=== PATIENT | female | born 1995 | race Two or more races ===

== ENCOUNTER 2024-10-30 07:27 | Inpatient (IN) | payer OTHER ==
[~2024-10-30] VITALS: Ht 177.8 cm; Wt 99.8 kg
[2024-10-30 08:29] VITALS: O2SAT 99
[2024-10-30] MEDS ORDERED: ZOFRAN8 MG (08:31)
--- NOTE | 2024-10-30 08:31 | NUR ---
PRE EMBARAZADA DE 9 SEMANASDE GESTACION CON VOMITOS MAS DE 10. PTE REFIEFE QUE [place] BOMBA DE ZOFRAN LA CUAL NO AYUDA. SE LE KESHIA S/V Y SE UBICA EN NEISHA.
[2024-10-30] MEDS ORDERED: ONDANSETRON HCL 2 MG/ML VIAL IV STA (08:52)
[2024-10-30] MEDS ORDERED: 0.9 % SODIUM CHLORIDE 1,000 ML IV STA (08:52)
--- NOTE | 2024-10-30 09:17 | NUR ---
SE EDUCA SOBRE [place] MEDICO, ESTA REFIERE ENTENDER. SE EXTRAEN MUESTRAS DE LABORATORIO Y SE ADMINISTRAN MEDICAMENTOS DAPHNE ORDEN MEDICA. SE HACE ENTREGA DE ENVASE DE U/A.
[2024-10-30 09:37] LABS: BASO % 0.3 % (0.1-1.2); EOS # 0.04 (0.04-0.54); EOS % 0.4 % (0.7-7.0); LYMPH # 2.30 (1.18-3.74); LYMPH % 20.7 % (19.3-53.1); MEAN PLATELET VOLUME 10.30 fl (9.4-12.4); MONO # 0.52 (0.24-0.82); MONO % 4.7 % (4.7-12.5); NEUT # 8.16 (1.56-6.13); NEUT % 73.5 % (34.0-71.1); RED CELL DISTRIBUTION WIDTH 17.0 % (11.6-14.4)
[2024-10-30 10:37] LABS: BUN CREA RATIO 11.0 (7.0-25.0); CREATININE SERUM 0.84 mg/dL (0.55-1.02); GFR 79.08; GLUCOSE FASTING 120.0 mg/dL (65-100); OSMOLALITY SERUM 268.0 MOSM/KG (275-295)
[2024-10-30 10:43] LABS: HCG QUANTITATIVE 88979.0 mUI/mL (1-3)
[2024-10-30 11:31] LABS: URINE APPEARANCE Clear; URINE BILIRRUBIN Small (NEGATIVE); URINE BLOOD Negative; URINE COLOR Dark Yellow; URINE GLUCOSE Negative (NEGATIVE); URINE LEUKOCYTE Trace; URINE NITRATE Negative; URINE PROTEIN 30 (NEGATIVE); URINE UROBILINOGEN 1.0 E.U./dl
[2024-10-30 11:36] LABS: URINE BACTERIA 1462.7 uL (0.0-1933); URINE CAST 3.37 uL (0.0-1.40); URINE EPITHELIAL CELLS 67.5 uL (0.0-38.8); URINE RBC 21.1 uL (0.0-20.8); URINE WBC 12.9 uL (0.0-23.2)
[2024-10-30] MEDS ORDERED: KETOROLAC TROMETHAMINE 30 MG VIAL ONE (11:42)
[2024-10-30] MEDS ORDERED: KETOROLAC TROMETHAMINE 30 MG VIAL IV ONE (11:45)
[2024-10-30] MEDS ORDERED: METOCLOPRAMIDE HCL 5 MG/ML VIAL ONE ×2 (12:08→16:23)
[2024-10-30] MEDS ORDERED: METOCLOPRAMIDE HCL 10 MG in DEXTROSE 5 % IN WATER 50 ML IV ONE ×2 (12:15→16:00)
[2024-10-30 12:23] LABS: URINE KETONE 80 (NEGATIVE)
[2024-10-30 12:24] LABS: URINE MUCUS HEAVY
[2024-10-30] MEDS ORDERED: FAMOtidine 10 MG/ML (4ML VIAL) IV ONE (16:00)
[2024-10-30] MEDS ORDERED: FAMOTIDINE/PF 20 MG/2 ML VIAL ONE (16:05)
[2024-10-30 16:52] LABS: COVID-19 AG NEGATIVE (NEGATIVE)
[2024-10-30 19:04] VITALS: BP 99/66
[2024-10-30 19:24] VITALS: BP 99/66
[2024-10-30] MEDS ORDERED: METOCLOPRAMIDE HCL 5 MG/ML VIAL IV SCH (21:14)
[2024-10-30] MEDS ORDERED: ACETAMINOPHEN 500 MG GEL..CAP PO PRN (21:15)
[2024-10-31] VITALS: BP 106/76
[2024-10-31 08:43] VITALS: BP 103/72
[2024-10-31] MEDS ORDERED: FAMOTIDINE/PF 20 MG/2 ML VIAL IV SCH (09:00)
[2024-10-31 16:41] VITALS: BP 99/62
[2024-10-31] MEDS ORDERED: METOCLOPRAMIDE HCL 10 MG TABLET PO SCH (20:00)
[2024-11-01] VITALS: BP 97/67
[2024-11-01 08:00] VITALS: BP 108/70
[2024-11-01 16:00] VITALS: BP 130/79
[2024-11-01] MEDS ORDERED: CITRIC ACID/SODIUM CITRATE 15 ML BLIST.PACK PO ONE (19:45)
[2024-11-01] MEDS ORDERED: CITRIC ACID/SODIUM CITRATE 30 ML BLIST.PACK PO ONE (21:01)
[2024-11-02] VITALS: BP 116/73
[2024-11-02 09:25] VITALS: BP 114/71
[2024-11-02] MEDS ORDERED: METOCLOPRAMIDE10 MG PO (13:33)
[2024-11-02] MEDS ORDERED: PEPCID AC20 MG PO (13:33)
== END 2024-11-02 13:53 | disposition home or self-care (01) | DRG 833 ==
LOC: ER 07:27 → SEC-K 16:29 → OB/GYN 16:32
PROVIDERS: Emergency Medicine; ADMIT Specialist; ATTEND Specialist
PROC: 4A1HXCZ Monitoring of Products of Conception, Cardiac Rate, External Approach (ICD-10-PCS; principal; 2024-10-30)
DX: O21.0 Mild hyperemesis gravidarum (principal); Z3A.09 9 weeks gestation of pregnancy

== ENCOUNTER 2024-11-07 08:09 | Emergency (ER) | payer OTHER ==
[~2024-11-07] VITALS: Ht 170.2 cm; Wt 99.8 kg
[~2024-11-07 08:09] MED LIST: METOCLOPRAMIDE10 MG PO; PEPCID AC20 MG PO; ZOFRAN8 MG
[2024-11-07] MEDS ORDERED: FAMOTIDINE/PF 20 MG/2 ML VIAL IV STA ×2 (09:40→10:51)
[2024-11-07] MEDS ORDERED: ONDANSETRON HCL 2 MG/ML VIAL IV STA (09:40)
[2024-11-07] MEDS ORDERED: FAMOTIDINE/PF 20 MG/2 ML VIAL ONE ×2 (09:44→10:53)
[2024-11-07] MEDS ORDERED: ONDANSETRON HCL 2 MG/ML VIAL ONE (09:44)
[2024-11-07 09:53] LABS: BASO % 0.2 % (0.1-1.2); EOS # 0.07 (0.04-0.54); EOS % 0.8 % (0.7-7.0); LYMPH # 2.22 (1.18-3.74); LYMPH % 26.7 % (19.3-53.1); MEAN PLATELET VOLUME 10.30 fl (9.4-12.4); MONO # 0.42 (0.24-0.82); MONO % 5.0 % (4.7-12.5); NEUT # 5.56 (1.56-6.13); NEUT % 66.9 % (34.0-71.1); RED CELL DISTRIBUTION WIDTH 17.6 % (11.6-14.4)
[2024-11-07 10:44] LABS: ALT/SGPT 46.0 U/L (12-78); AST/SGOT 24.0 U/L (15-37); BILIRUBIN TOTAL 0.29 mg/dL (0.3-1.2); BUN CREA RATIO 14.0 (7.0-25.0); CREATININE SERUM 0.66 mg/dL (0.55-1.02); GFR 104.46; GLOBULINA 6.0 G/DL (2.4-3.5); GLUCOSE FASTING 93.0 mg/dL (65-100); OSMOLALITY SERUM 276.0 MOSM/KG (275-295)
[2024-11-07 10:48] LABS: HCG QUANTITATIVE 64940.0 mUI/mL (1-3)
[2024-11-07] MEDS ORDERED: METOCLOPRAMIDE HCL 5 MG/ML VIAL IV STA (10:51)
[2024-11-07] MEDS ORDERED: METOCLOPRAMIDE HCL 5 MG/ML VIAL ONE (10:53)
[2024-11-07 10:56] LABS: URINE APPEARANCE Cloudy; URINE BILIRRUBIN Negative (NEGATIVE); URINE BLOOD Negative; URINE COLOR Dark Yellow; URINE KETONE Trace (NEGATIVE); URINE LEUKOCYTE Trace; URINE NITRATE Negative; URINE PROTEIN 30 (NEGATIVE); URINE UROBILINOGEN 1.0 E.U./dl
[2024-11-07 10:57] LABS: URINE BACTERIA 5923.2 uL (0.0-1933); URINE EPITHELIAL CELLS 64.7 uL (0.0-38.8); URINE RBC 68.0 uL (0.0-20.8); URINE WBC 24.4 uL (0.0-23.2)
[2024-11-07 12:23] LABS: URINE CAST 0.43 uL (0.0-1.40); URINE GLUCOSE 100 MG/DL (NEGATIVE)
[2024-11-07] MEDS ORDERED: CEPHALEXIN500 M1 PO (13:56)
[2024-11-07] MEDS ORDERED: METOCLOPRAMIDE10 MG PO (13:56)
== END 2024-11-07 15:01 | disposition home or self-care (01) ==
LOC: ER 08:09
PROVIDERS: General Practice
DX: O21.0 Mild hyperemesis gravidarum (principal); Z3A.10 10 weeks gestation of pregnancy; R10.9 Unspecified abdominal pain

== ENCOUNTER 2024-12-22 18:04 | Emergency (ER) | payer OTHER ==
[~2024-12-22] VITALS: Ht 177.8 cm; Wt 99.8 kg
[~2024-12-22 18:04] MED LIST changes: +CEPHALEXIN500 M1 PO
[2024-12-22] MEDS ORDERED: RINGERS SOLUTION,LACTATED 1,000 ML IV SCH (19:30)
[2024-12-22] MEDS ORDERED: ACETAMINOPHEN 500 MG GEL..CAP PO ONE ×2 (19:30→20:11)
[2024-12-22] MEDS ORDERED: FAMOtidine 10 MG/ML (4ML VIAL) IV PUSH ONE (19:30)
[2024-12-22] MEDS ORDERED: ONDANSETRON HCL 4 MG in 0.9 % SODIUM CHLORIDE 50 ML IV ONE (19:30)
[2024-12-22] MEDS ORDERED: ONDANSETRON HCL 2 MG/ML VIAL ONE (20:11)
[2024-12-22] MEDS ORDERED: FAMOTIDINE/PF 20 MG/2 ML VIAL ONE (20:11)
[2024-12-22 21:00] LABS: BASO % 0.3 % (0.1-1.2); EOS # 0.10 (0.04-0.54); EOS % 0.7 % (0.7-7.0); LYMPH # 2.69 (1.18-3.74); LYMPH % 18.3 % (19.3-53.1); MEAN PLATELET VOLUME 10.20 fl (9.4-12.4); MONO # 0.47 (0.24-0.82); MONO % 3.2 % (4.7-12.5); NEUT # 11.35 (1.56-6.13); NEUT % 77.0 % (34.0-71.1); RED CELL DISTRIBUTION WIDTH 17.5 % (11.6-14.4)
[2024-12-22 21:15] LABS: INR 1.03
[2024-12-22 21:34] LABS: ALT/SGPT 15.0 U/L (12-78); AST/SGOT 12.0 U/L (15-37); BILIRUBIN TOTAL 0.34 mg/dL (0.3-1.2); BUN CREA RATIO 9.0 (7.0-25.0); CREATININE SERUM 0.74 mg/dL (0.55-1.02); GFR 91.54; GLOBULINA 5.4 G/DL (2.4-3.5); GLUCOSE FASTING 103.0 mg/dL (65-100); OSMOLALITY SERUM 274.0 MOSM/KG (275-295)
[2024-12-22 23:12] LABS: URINE APPEARANCE Cloudy; URINE BILIRRUBIN Small (NEGATIVE); URINE BLOOD Negative; URINE COLOR Dark Yellow; URINE GLUCOSE Negative (NEGATIVE); URINE LEUKOCYTE Negative; URINE NITRATE Negative; URINE PROTEIN 30 (NEGATIVE); URINE UROBILINOGEN 1.0 E.U./dl
[2024-12-22 23:16] LABS: URINE BACTERIA 4825.1 uL (0.0-1933); URINE CAST 2.78 uL (0.0-1.40); URINE EPITHELIAL CELLS 44.1 uL (0.0-38.8); URINE RBC 50.7 uL (0.0-20.8); URINE WBC 38.7 uL (0.0-23.2)
[2024-12-22 23:28] LABS: URINE KETONE 80 (NEGATIVE)
[2024-12-22 23:29] LABS: URINE MUCUS HEAVY
[2024-12-22] MEDS ORDERED: ZOFRAN8 MG PO (23:48)
[2024-12-22] MEDS ORDERED: ACETAMINOPHEN500 M2 PO (23:48)
[2024-12-23 00:22] VITALS: BP 110/70; O2SAT 100
== END 2024-12-23 00:24 | disposition home or self-care (01) ==
LOC: ER 18:05
PROVIDERS: General Practice
DX: Z33.1 Pregnant state, incidental (principal); Z3A.16 16 weeks gestation of pregnancy; R10.20 Pelvic and perineal pain unspecified side

== ENCOUNTER 2024-12-23 11:19 | Emergency (ER) | payer OTHER ==
[~2024-12-23] VITALS: Ht 177.8 cm; Wt 99.8 kg
[~2024-12-23 11:19] MED LIST changes: +ACETAMINOPHEN500 M2 PO; +ZOFRAN8 MG PO
[2024-12-23 12:49] VITALS: BP 97/62; O2SAT 99
[2024-12-23] MEDS ORDERED: ONDANSETRON HCL 2 MG/ML VIAL IV STA (13:10)
[2024-12-23] MEDS ORDERED: 0.9 % SODIUM CHLORIDE 1,000 ML IV STA (13:10)
[2024-12-23] MEDS ORDERED: CEFTRIAXONE SODIUM 1,000 MG VIAL IV ONE (13:30)
[2024-12-23 14:40] LABS: URINE APPEARANCE Clear; URINE BILIRRUBIN Small (NEGATIVE); URINE BLOOD Negative; URINE COLOR Dark Yellow; URINE LEUKOCYTE Trace; URINE NITRATE Negative; URINE PROTEIN Trace (NEGATIVE); URINE UROBILINOGEN 1.0 E.U./dl
[2024-12-23 14:43] LABS: URINE EPITHELIAL CELLS 39.2 uL (0.0-38.8); URINE RBC 17.5 uL (0.0-20.8); URINE WBC 28.1 uL (0.0-23.2)
[2024-12-23] MEDS ORDERED: CEFTRIAXONE SODIUM 1,000 MG VIAL ONE (14:43)
[2024-12-23] MEDS ORDERED: ONDANSETRON HCL 2 MG/ML VIAL ONE (14:43)
[2024-12-23 15:08] LABS: BASO % 0.4 % (0.1-1.2); EOS # 0.06 (0.04-0.54); EOS % 0.8 % (0.7-7.0); LYMPH # 1.13 (1.18-3.74); LYMPH % 14.7 % (19.3-53.1); MEAN PLATELET VOLUME 10.00 fl (9.4-12.4); MONO # 0.44 (0.24-0.82); MONO % 5.7 % (4.7-12.5); NEUT # 6.01 (1.56-6.13); NEUT % 77.9 % (34.0-71.1); RED CELL DISTRIBUTION WIDTH 17.4 % (11.6-14.4)
[2024-12-23 15:13] LABS: URINE CAST 0.58 uL (0.0-1.40); URINE GLUCOSE 100 MG/DL (NEGATIVE); URINE KETONE 40 (NEGATIVE)
[2024-12-23 15:16] LABS: URINE MUCUS MODERATE
[2024-12-23 15:18] LABS: TYPE CELLS SQUAMOUS
[2024-12-23 15:37] LABS: ALT/SGPT 15.0 U/L (12-78); AST/SGOT 11.0 U/L (15-37); BILIRUBIN TOTAL 0.36 mg/dL (0.3-1.2); BUN CREA RATIO 12.0 (7.0-25.0); CREATININE SERUM 0.68 mg/dL (0.55-1.02); GFR 100.92; GLOBULINA 5.0 G/DL (2.4-3.5); GLUCOSE FASTING 83.0 mg/dL (65-100); OSMOLALITY SERUM 268.0 MOSM/KG (275-295)
== END 2024-12-24 00:31 | disposition home or self-care (01) ==
LOC: ER 11:19
PROVIDERS: Physician Assistant Medical
DX: Z33.1 Pregnant state, incidental (principal); Z3A.16 16 weeks gestation of pregnancy; K52.9 Noninfective gastroenteritis and colitis, unspecified; N39.0 Urinary tract infection, site not specified; E86.0 Dehydration; R63.8 Other symptoms and signs concerning food and fluid intake; R10.20 Pelvic and perineal pain unspecified side; R11.10 Vomiting, unspecified